=== PATIENT | female | born 1960 | race Caucasian/White ===

== ENCOUNTER 2018-09-07 07:23 | Day surgery (SDC) | payer OTHER ==
[2018-09-03 12:47] LABS: Absolute Lymphocytes (CBC) 1.1 K/uL (0.7-4.9); Basophils % 1.4 % (0-1.3); Eosinophils % 3.2 % (0-4.4); Hematocrit 37.5 % (36.0-45.0); Lymphocytes % 27.7 % (15.3-44.8); MPV 7.7 fL (7.6-11.3); Monocytes % 12.7 % (3.3-12.3); RBC Red Blood Cell Count 4.01 M/uL (3.86-4.86)
--- NOTE | 2018-09-03 12:55 | RAD REPORT ---
EXAM DESCRIPTION: RAD - Chest Pa And Lat (2 Views) - 09/03/2018 12:44 pm CLINICAL HISTORY: pre op Chest pain. COMPARISON: Chest Single View dated 02/25/2018; CHEST SINGLE VIEW dated 01/12/2013; CHEST PA AND LAT 2 VIEW dated 06/21/2011; ABDOMEN 1 VIEW KUB dated 06/15/2011No comparisonsNo comparisons FINDINGS: Hyperexpanded lungs are noted. No focal infiltrate seen. The heart is normal in size. No d isplaced fractures. IMPRESSION: No acute or concerning finding suspected.
[2018-09-03 13:11] LABS: Albumin 4.2 g/dL (3.4-5.0); Bilirubin Direct 0.1 mg/dL (0-0.2); Bilirubin Total 0.5 mg/dL (0.2-1.0); Potassium 3.9 mmol/L (3.5-5.1); Protein, Total 7.3 g/dL (6.4-8.2)
--- NOTE | 2018-09-04 07:35 | EKG ---
Test Date: 2018-09-03 Test Time: 12:33:13 Chief Radiation Therapist: ANDREW MEASUREMENT RESULTS: Intervals: Rate: 55 IN: 140 QRSD: 76 QT: 432 QTc: 413 Paola: P: 61 IN: 140 QRS: 73 T: 79 INTERPRETIVE STATEMENTS: Sinus bradycardia Cannot rule out Anterior infarct, age undetermined Abnormal ECG No previous ECG available for comparison Electronically Signed On 09-04-18 07:34:25 CDT by Les Vuong
[2018-09-07] MEDS ORDERED: Ringers Lactate 1,000 ML IV ONE ×2 (08:05→10:05)
[2018-09-07] MEDS ORDERED: GLYCOPYRROLATE 0.2 MG/ML SYR ONE ×2 (08:07→09:14)
[2018-09-07] MEDS ORDERED: MIDAZOLAM HCL 2 MG/2 ML INJ ONE (08:07)
[2018-09-07] MEDS ORDERED: PROPOFOL 200 MG/20 ML VIAL IV ONE (08:07)
[2018-09-07] MEDS ORDERED: LIDOCAINE 2% MPF 5 ML VIAL ONE (08:08)
[2018-09-07] MEDS ORDERED: ROCURONIUM 50 MG/5 ML VIAL IV ONE (08:09)
[2018-09-07] MEDS ORDERED: FENTANYL CITR 250 MCG/5 ML ONE (08:09)
[2018-09-07] MEDS ORDERED: ONDANSETRON 4 MG/2 ML VIAL ONE (08:10)
[2018-09-07] MEDS ORDERED: NEOSTIGMINE 1 MG/ML -10 ML VIAL ONE (08:11)
[2018-09-07] MEDS ORDERED: EPHEDRINE SULF 50 MG/ML VIAL ONE (08:56)
[2018-09-07] MEDS ORDERED: CEFOXITIN/SWI 1gm 1 GM/10 ML SYR IV ONE (09:00)
--- NOTE | 2018-09-07 09:32 | P.BOP ---
Preoperative diagnosis: RUQ abd pain, biliary dyskinesia, gallbladder polyps Postoperative diagnosis: same Primary procedure: Laparoscopic cholecystectomy Bar Pointer: MARA SHARMA (LAYOUT INSPECTOR) Estimated blood loss: <10cc Specimen: gb Findings: as above Anesthesia: General Complications: None Transferred to: Recovery Room Condition: Good
[2018-09-07] MEDS ORDERED: CODEINE 30MG/APAP 300MG TAB ONE (10:59)
--- NOTE | 2018-09-07 23:08 | OP ---
Date of Procedure: 09/07/2018 Surgeon: Boogie Jean MD Preoperative Diagnoses: Right upper quadrant abdominal pain, biliary dyskinesia, cholecystitis, gall bladder polyps. Postoperative Diagnoses: Right upper quadrant abdominal pain, biliary dyskinesia, cholecystitis, gal lbladder polyps. Procedure: Laparoscopic cholecystectomy. Estimated Blood Loss: Less than 10 cc. Specimen: Gallbladder. Findings: As above. Anesthesia: General plus local. Indications: This is a case of a 58-year-old patient with above diagnoses. Fully explained the bene fits, alternatives, and risks of laparoscopic, possible open cholecystectomy with benefits, alternati ves, and risks including, but not limited to infection, bleeding, damage to adjacent structures, anes thesia complication, bile leak, CO, even . She also understands this may not relieve any sympto ms. She might need more than one surgical intervention. She understood, signed a consent. Description Of Procedure: Patient was brought to the operating room, placed in supine position. Ane sthesia was done without complication. Abdominal area was prepped and draped in the usual sterile fa shion. Marcaine 0.5% was injected for local anesthetic, followed by sharp incision of the skin in th e infraumbilical region. Incision was carried down to fascia, which was opened under direct vision. Vicryl #1 placed on each side of the fascia. Salome trocar was carefully introduced. Pneumoperiton eum was obtained. I placed 3 more trocars, 5 mm each one of them, one in the epigastric area and two in the right upper quadrant using same technique, which consisted of local anesthetic, sharp incisio n of the skin, and introduction of the trocars under direct vision. This allowed me to put a grasper in the fundus of the gallbladder, another grasper in the infundibulum, retracting the gallbladder in the inferolateral fashion, exposing the triangle of Calot and obtaining critical view of safety. Cy stic duct and cystic artery were clearly isolated and freed circumferentially and a connection betwee n those and the gallbladder was clearly identified. I proceeded to ligate those by using at least 3 clips proximal, 1 clip distal, ligation in middle. For the cystic artery, we placed 2 clips proximal , 1 clip distal, ligation in middle. The gallbladder was removed from the liver using Bovie cauteriz er and removed from abdominal cavity using an EndoCatch through the umbilical incision. The area was inspected once again. No bile leak. No bleeding. At that moment, I proceeded to remove the trocar s under direct vision, deflated the pneumoperitoneum, closed the fascia with #1 Vicryl, irrigated sub cutaneous tissue, closed that with 3-0 chromic and skin in a subcuticular fashion with 3-0 chromic. Sponge count and instrument count were correct. Patient tolerated the procedure well. Patient was s ent to recovery in stable condition. Diagnoses: Right upper quadrant abdominal pain, biliary dyskinesia, gallbladder polyps, cholecystiti s. Procedure: Laparoscopic cholecystectomy. Disposition: Home. Activity: As tolerated. No heavy lifting. Followup: Follow up in my office in 1 week. Call for appointment [phone]. Keep area dry for 48 ho urs, then may shower. Keep Steri-Strips intact. Medications: Include Tylenol No. 3 q.4 hours p.r.n. pain, Zofran 4 q.6 p.r.n. nausea. VEE/IRMA Voice ID: [id number] Report ID: [id number]
== END 2018-09-07 12:12 | disposition home or self-care (01) ==
LOC: OR 07:23
PROVIDERS: ATTEND Surgery
PROC: 0FT44ZZ Resection of Gallbladder, Percutaneous Endoscopic Approach (ICD-10-PCS; principal; 2018-09-07 08:30)
DX: K81.1 Chronic cholecystitis (principal); K82.8 Other specified diseases of gallbladder; I10 Essential (primary) hypertension; F32.9 Major depressive disorder, single episode, unspecified; F41.9 Anxiety disorder, unspecified; Z88.0 Allergy status to penicillin; Z88.3 Allergy status to other anti-infective agents; Z82.49 Family history of ischemic heart disease and other diseases of the circulatory system
CPT/HCPCS: 36415; 71046; 80048; 80076; 82150; 83690; 85025; 88304; 93005; J2250; J2405; J2704; J2710; J3010

== ENCOUNTER 2024-01-21 23:46 | Emergency (ER) | payer BC, OTHER ==
--- OUTSIDE RECORDS SUMMARY | 2024-01-21 23:50 | XMS REPORT | Continuity of Care Document ---
Author Name Unknown Address [address] [facility] [address] [place] [address] [facility] Address [address] 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 Name Role Phone Nash Mendoza Primary Care Physician [phone] PRANEETH CHIANG Attending Clinician Unavailable ROOPA ERNST Attending Clinician Unavailable BAILEY BARLOW Attending Clinician Unavailab KAMRON Herrera Attending Clinician Unavail able DIEGO HERNDON Attending Clinician Unavailab le LAB90 Attending Clinician Unavailable DWAYNE MOORE Attending Clinician Unava ilDANYA Singleton Attending Clinician Unavailable SAMUEL FONTANA Attending Clinician Unavaila ANJELICA Gaspar Attending Clinician Unav ailable ARIANNE LUCIA Attending Clinician Unavailable LIZZ HOLLIDAY Attending Clinician Unavailable SHILOH HERNÁNDEZ Attending Clinician Unavailable STONE RUEDA Attending Clinician Unavailab DORA Vargas Attending Clinician Unavailable LAB47 Attending Clinician Unavailable VAISHALI GARCIA Attending Clinician Unav ailable JOHANN SHAH Attending Clinician Unavailable ROWENA SOTO Attending Clinician Unavailable [facility] Attending Clinician UnavailGHASSAN Willoughby Attending Clinician Unavailable REID MAY Attending Clinician Unavailabl TATA Villatoro Attending Clinician Unavailable MD ELISA Attending Clinician Unavailab lucien MATOS7 Attending Clinician Unavailable BURT GRAHAM Attending Clinician Unavailab SHARLENE Lawson Attending Clinician Unavailable EDUCATION, TOTAL JOINT Attending Clinician Unava ilable LAB59 Attending Clinician Unavailable BROOKLYNN GONZALEZ Attending Clinician Unavailable [facility] Attending Clinician Unavail able DOMINGO PEREZ Attending Clinician Un available Samanta Dietz Attending Clinician Un available AISHA DOUGHERTY Attending Clinician Unavailable BOBBY FLORES Attending Clinician Unavailable SMOOTH ANGEL Attending Clinician Unavailable Neftali GUALDE, Dwayne Avendano Attending Clinician [phone] Doctor Unassigned, [place] Attending Clinician U navailable BEVERLY BOBO Attending Clinician UnavailBeverly Mcneal MD Attending Clinician [phone] Niranjan Gutiérrez DO Attending Clinician [phone] Lab, Adc Fam Pob I Attending Clinician Unavailab Esther Montenegro Attending Clinician [phone] ESTHER CORDERO Attending Clinician Unavailable LUISITO ROMANO Attending Clinician Unavailable Luisito Romano DO Attending Clinician [phone] Samanta Dietz Admitting Clinician Un available LUISITO ROMANO Admitting Clinician Unavailable Jhonny Cisneros Admitting Clinician Unavailtomás ernst Payers Payer Name Policy Type Policy Number Effective Date Expirati on Date Source TRS [employer] 9 [id number] 2022 00:00:00 [employer]ET[employer] 2 [id number] 2020 00:00:00 Problems Condition Name Condition Details Condition Category Status Onset Date Resolution Date Last Treatment Date Treating Clinician Comments Source Right hip pain - Not Controlled Right hip pain - Not Controlled Disease Active 09-21 00:00: 00 Luba Davisold - Externa l Primary osteoarthr itis of both hands - Not Controlled Primary osteoarthr itis of both hands - Not Controlled Disease Active 09-21 00:00: 00 Luba Sewinterold - Externa l Right hip pain - Not Controlled Right hip pain - Not Controlled Disease Active 09-21 00:00: 00 Luba Sewinterold - Externa l Essential hypertensi on Essential hypertensi on Disease Active 08-11 00:00: 00 Luba Davisold - Externa l Anxiety Anxiety Disease Active 08-11 00:00: 00 Luba Davisold - Externa l Mood disorder Mood disorder Disease Active 08-11 00:00: 00 Luba Albright - Externa l History of COVID-19 History of COVID-19 Disease Active 08-11 00:00: 00 Luba Davisold - Externa l Menopausal osteoporos is Menopausal osteoporos is Disease Active 08-04 00:00: 00 Luba Albright - Externa l Stage 3 chronic kidney disease Stage 3 chronic kidney disease Disease Active 08-04 00:00: 00 Luba Davisold - Externa l No known active problems No known active problems Disease [facility] Allergies, Adverse Reactions, Alerts Allergy Name Allergy Type Status Severity Reaction(s) Onset Date Inactive Date Treating Clinician Comments Source Hydrocod one-Acet aminophe n Drug Intolera nce Active Hallucinatio ns 06-19 00:00: 00 Luba Albright - Externa l Avocado Propensi ty to adverse reaction s Active Swelling 08-11 00:00: 00 Luba Albright Banana Propensi ty to adverse reaction s Active Swelling 08-11 00:00: 00 Luba Albright Black [place] Pollen Propensi ty to adverse reaction s Active Swelling 08-11 00:00: 00 Luba Seybold - Externa l Floxin Otic Propensi ty to adverse reaction s Active Rash 0 18 00:00: 00 Luba Davisold - Externa l Avocado Propensi ty to adverse reaction s Active Swelling 0 18 00:00: 00 Luba Davisold - Externa l Banana Propensi ty to adverse reaction s Active Swelling 0 18 00:00: 00 Luba Davisold - Externa l Ofloxaci n Propensi ty to adverse reaction s Active Rash 0 217 00:00: 00 Luba Davisold Ofloxaci n Propensi ty to adverse reaction s Active Rash 0 217 00:00: 00 [facility] Penicill ins Propensi ty to adverse reaction s Active Nausea and/or Vomiting 0 217 00:00: 00 [facility] Penicill ins Propensi ty to adverse reaction s Active Nausea and/or Vomiting 0 217 00:00: 00 [facility] Ofloxaci n Propensi ty to adverse reaction s Active Rash 0 7-11 00:00: 00 Other reaction( s): Itching/H iraj/Rash Luba Albright - Externa l Mixed Grasses Propensi ty to adverse reaction s Active 0 5-01 00:00: 00 Luba Albright - Externa l Floxin Otic Propensi ty to adverse reaction s Active Rash 0 6-13 00:00: 00 Other Reaction( s): Not available Luba Albright - Externa l Penicill ins Propensi ty to adverse reaction s Active Nausea and Vomiting 0 7-11 00:00: 00 Luba Albright Penicill in G Benzathi ne Propensi ty to adverse reaction s Active 0 3-14 00:00: 00 Other Reaction( s): Not available Luba Davisold - Externa l FLOXIN DA Active U 21 00:00: 00 [facility] No Known Contrast Allergie s DA Active U 0 08-14 00:00: 00 [facility] No Known Food Allergie s DA Active U 08-14 00:00: 00 [facility] No Known Other Allergie s DA Active U 08-14 00:00: 00 [facility] PENICILL IN DA Active U 08-14 00:00: 00 [facility] floxacil joanna DA Active U 08-02 00:00: 00 [facility] penicill in G DA Active U 08-02 00:00: 00 [facility] Flucloxa cillin Propensi ty to adverse reaction s Active 08-02 00:00: 00 Luba Campbell Externa l Penicill ins Propensi ty to adverse reaction s Active Nausea and Vomiting 08-02 00:00: 00 Other reaction( s): Nausea/Vo miting Luba Albright - Externa l floxacil joanna DA Active U 08-02 00:00: 00 [facility] penicill in G DA Active U 08-02 00:00: 00 [facility] Social History Social Habit Start Date Stop Date Quantity Comments Source Gender identity 2020-08-08 11:56:38 Identifies as female gender (finding) Luba Albright - External Sexual orientation U [facility] History SDOH Alcohol Frequency Luba hand - External History SDOH Alcohol Std Drinks Luba calderon - External History SDOH Alcohol Binge Luba Albright - External ASSERTION Not Luba Albright - External Alcoholic beverage intake 2024-01-19 00:00:00 2024-01-19 00:00:00 Ex-drinker (finding) Luba Albright - External Tobacco use and exposure 2023-09-22 00:00:00 2023-09-22 00:00:00 Smokeless tobacco non-user Luba Albright - External Alcohol intake 2023-03-24 00:00:00 2023-03-24 00:00:00 Current drinker of alcohol (finding) Luba Albright - External Alcohol Comment 2022-08-21 00:00:00 2022-08-21 00:00:00 rarely Luba Albright - External Exposure to SARS-CoV-2 (event) 2021-03-26 00:00:00 2021-04-25 16:13:00 Not sure [facility] History of Social function 2020-09-28 00:00:00 2020-09-28 00:00:00 [facility] Sex 2020-05-23 17:12:38 2020-05-23 17:12:38 Female (finding) Luba Albright - External Sex Assigned At 1960 00:00:00 1960 00:00:00 [facility] Smoking Status Start Date Stop Date Source Never smoked tobacco Luba Albright - External Medications Ordered Medication Name Filled Medication Name Start Date Stop Date Current Medication? Ordering Clinician Indication Dosage Frequency Signature (SIG) Comments Components Source methylPREDN ISolone 4 MG oral Tablet Therapy Pack 2023-02 00:00: 00 Yes [id number] 1{lucille} Take 1 lucille by mouth See Admin Instructio ns Use as directed. Luba forbes Azelastine HCl 0.1 % nasal Solution 2023-02 00:00: 00 Yes [id number] 1{spray } Q.5D Use 1 spray in each nostril 2 times daily. Luba forbes Cefdinir 300 MG oral Capsule 2023-02 00:00: 00 01-26 05:59 :00 Yes [id number] 300mg Q.5D Take 1 capsule (300 mg total) by mouth 2 times daily for 7 days. Luba forbes Magnesium 200 MG oral Chewable Tablet 09-21 08:12: 40 Yes Take by mouth Luba forbes Meloxicam 15 MG oral Tablet 09-21 08:12: 32 09-21 00:00 :00 No TAKE 1 TABLET BY MOUTH EVERY DAY WITH MEALS STOP IF UPSET STOMACH Luba forbes Tizanidine HCl 4 MG oral Tablet 09-21 08:12: 32 09-21 00:00 :00 No 4mg Q.25D Take 1 tablet (4 mg total) by mouth every 6 hours as needed. Luba forbes Metoprolol Succinate 25 MG oral TABLET SR 24 HR 09-21 00:00: 00 Yes [id number] take 1/2 tablet by mouth every day. Luba forbes Magnesium 200 MG oral Chewable Tablet 09-17 09:34: 21 Yes Take by mouth Luba forbes Metoprolol Succinate 25 MG oral TABLET SR 24 HR 08-28 00:00: 00 09-21 00:00 :00 No [id number] take 1/2 tablet by mouth every day. Luba forbes Methylpredn isolone Acetate (Depo-Medro l) 40 mg/ml - Physician Administere d (J1030) 07-22 16:00: 00 07-22 16:41 :00 No [id number] 20mg 20 mg, Physician Administer ed, ONCE, 1 dose, On Fri07/23/23 at 1100 Luba forbes Magnesium 200 MG oral Chewable Tablet 07-22 10:07: 23 Yes Take by mouth Luba forbes Meloxicam 15 MG oral Tablet 07-22 10:07: 23 Yes TAKE 1 TABLET BY MOUTH EVERY DAY WITH MEALS STOP IF UPSET STOMACH Luba forbes Tizanidine HCl 4 MG oral Tablet 07-22 10:07: 23 Yes 4mg Q.25D Take 1 tablet (4 mg total) by mouth every 6 hours as needed. Luba forbes Alendronate Sodium 70 MG oral Tablet 07-09 00:00: 00 Yes 70mg Take 1 tablet (70 mg total) by mouth every 7 days. Luba forbes Meloxicam 15 MG oral Tablet 03-24 07:30: 31 Yes TAKE 1 TABLET BY MOUTH EVERY DAY WITH MEALS STOP IF UPSET STOMACH Luba forbes Tizanidine HCl 4 MG oral Tablet 03-24 07:30: 31 Yes 4mg Q.25D Take 1 tablet (4 mg total) by mouth every 6 hours as needed. Luba forbes Lamotrigine 25 MG oral Tablet 03-13 00:00: 00 Yes 25mg QD Take 1 tablet (25 mg total) by mouth daily. Luba forbes Melatonin 5 MG oral Capsule 2022-02 15:02: 44 02-10 00:00 :00 No Luba forbes FLUTICASONE PROPIONATE, NASAL, (Flonase) 50 MCG/ACT nasal Suspension 2022-02 00:00: 00 07-22 00:00 :00 No [id number] 50ug QD Use 1 spray (50 mcg total) in each nostril daily as needed for rhinitis. Luba forbes Cetirizine (ZyrTEC Allergy) 10 MG oral Tablet 2022-02 00:00: 00 07-22 00:00 :00 No [id number] 10mg Take 1 tablet (10 mg total) by mouth daily. Luba forbes Melatonin 5 MG oral Capsule 2022-02 14:14: 42 Yes Luba forbes Magnesium 200 MG oral Chewable Tablet 2022-02 14:14: 42 Yes Take by mouth Luba forbes Melatonin 5 MG oral Capsule 10-02 10:09: 54 Yes Luba forbes Magnesium 200 MG oral Chewable Tablet 10-02 10:09: 54 Yes Take by mouth Luba forbes Melatonin 5 MG oral Capsule 09-16 13:06: 25 Yes Luba forbes Magnesium 200 MG oral Chewable Tablet 09-16 13:06: 25 Yes Take by mouth Luba forbes Dermatologi michela Products, Misc. (EpiCeram) apply externally Emulsion 09-16 00:00: 00 Yes [id number] Apply to affected areas on face and trunk BID prn Luba forbes Metoprolol Succinate 25 MG oral TABLET SR 24 HR 09-09 00:00: 00 Yes [id number] TAKE 1/2 TABLET BY MOUTH ONCE DAILY Luba forbes Melatonin 5 MG oral Capsule 08-21 09:00: 32 Yes Luba forbes Magnesium 200 MG oral Chewable Tablet 08-21 09:00: 32 Yes Take by mouth Luba forbes HYDROcodone -Acetaminop hen (Advance) 10-325 MG oral Tablet 08-21 00:00: 00 02-10 00:00 :00 No [id number] 1{tbl} Q.25D Take 1 tablet by mouth every 6 hours as needed for pain Driving Precaution s / No alcohol / No operating machinery Luba forbes Aspirin 325 MG oral Tablet 08-21 00:00: 00 10-02 00:00 :00 No [id number] 325mg Take 1 tablet (325 mg total) by mouth daily Luba forbes Mupirocin (BACTROBAN) 2 % apply externally Ointment 07-30 00:00: 00 Yes [id number] Apply ointment to each of the nares, 2 times a day for 5 days before surgery Luba forbes Magnesium 200 MG oral Chewable Tablet 07-25 10:23: 38 Yes Take by mouth Luba forbes Melatonin 5 MG oral Capsule 07-25 10:22: 09 Yes Luba forbes Melatonin 3 MG oral Capsule 06-05 09:06: 53 06-05 00:00 :00 No Luba forbes Gabapentin 100 MG oral Capsule 06-05 00:00: 00 02-10 00:00 :00 No [id number] 9102 Take 1-2 cap at night Luba forbes ESTRADIOL VAGINAL 0.1 MG/GM vaginal Cream 04-22 00:00: 00 Yes USING FINGER, APPLY 1 GM CREAM TO LABIA, PERINEUM AND LOWER VAGINAL AVILES 2 NIGHTS WEEKLY Luba forbes Melatonin 3 MG oral Capsule 04-03 08:41: 09 Yes Luba forbes Methylpredn isolone Acetate (Depo-Medro l) [40 mg/mL] 20mg TOTAL - Physician Administere d (J1030) - 22:30: 00 04-02 22:39 :00 No [id number] 9104 20mg Luba Albright - Externa l Melatonin 3 MG oral Capsule 04-02 15:32: 28 Yes Luba Rahmanwinterobdulia - Externa l Tizanidine HCl 4 MG oral Tablet 04-02 00:00: 00 06-19 00:00 :00 No [id number] 4mg Q.25D Take 1 tablet (4 mg total) by mouth every 6 hours as needed. Luba Jose Ramon - Externa l cloNIDine 0.1 MG/24HR transdermal PATCH WEEKLY - 00:00: 00 Yes Luba Rahmanwinterobdulia - Externa l Clonidine HCl (CATAPRES) 0.1 MG oral Tablet - 00:00: 00 Yes TAKE 1 TABLET BY MOUTH EVERY EVENING NEEDED FOR MANAGEMENT OF ANXIETY AND RACING MIND Luba Rahmanwinterobdulia - Externa l Melatonin 3 MG oral Capsule 2021-02 11:02: 16 Yes Luba Rahmanwinterobdulia - Externa l Meloxicam 15 MG oral Tablet 2021-02 00:00: 00 07-25 00:00 :00 No [id number] 9104 TAKE 1 TABLET BY MOUTH EVERY DAY WITH MEALS STOP IF UPSET STOMACH Luba Albright - Externa l Melatonin 3 MG oral Capsule 2021-02 15:30: 19 Yes Lbua Rahmanwinterobdulia - Externa l Meloxicam 15 MG oral Tablet 2021-02 0-31 00:00: 00 Yes [id number] 9104 TAKE 1 TABLET BY MOUTH EVERY DAY WITH MEALS STOP IF UPSET STOMACH Luba Albright - Externa l Melatonin 3 MG oral Capsule 2021-02 0-05 08:22: 07 Yes Luba Rahmankvng - Externa l Meloxicam 15 MG oral Tablet 2021-02 0-05 00:00: 00 Yes [id number] 9104 15mg Take 1 tablet (15 mg total) by mouth daily Take with Meals, STOP IF UPSET STOMACH Luba Rahmanwinterobdulia - Externa l Metoprolol Succinate 25 MG oral TABLET SR 24 HR 6-10 00:00: 00 Yes [id number] TAKE 1/2 TABLET BY MOUTH ONCE DAILY Luba Albright - Externa l triamcinolo ne acetonide (KENALOG) injection 40 mg 04-26 00:00: 00 04-25 22:47 :00 No [id number] 9100 40mg [facility] triamcinolo ne acetonide (KENALOG) injection 40 mg 04-25 23:45: 00 04-25 22:46 :14 No [id number] 9100 40mg [facility] Doxycycline Hyclate 100 MG oral Tablet 03-26 00:00: 00 Yes [id number] 100mg Take 1 tablet (100 mg total) by mouth 2 times daily Luba Albright methylPREDN ISolone 4 MG oral Tablet Therapy Pack 03-20 00:00: 00 03-26 00:00 :00 No [id number] 1{lucille} Take 1 lucille by mouth See Admin Instructio ns Use as directed Luba Albright clonazePAM 0.5 mg tablet 1-04 00:00: 00 Yes [facility] alendronate 70 mg tablet 2020-02 2-15 00:00: 00 Yes [facility] metoprolol succinate XL 25 mg 24 hr tablet 2020-02 2-13 00:00: 00 Yes [facility] SERTraline (ZOLOFT) 50 mg tablet 09-28 09:58: 32 Yes 50mg Take 50 mg by mouth daily. [facility] lamoTRIgine (LAMICTAL) 200 mg tablet 09-28 09:58: 32 Yes 200mg Take 200 mg by mouth 2 (two) times daily. [facility] metoprolol abbott-hydrochl orothiaz 50-12.5 mg Tb24 8 09:58: 32 Yes Take by mouth. [facility] Melatonin 3 MG oral Capsule 09-21 14:28: 51 Yes Luba Albright ESTRADIOL VAGINAL 0.1 MG/GM vaginal Cream 6- 00:00: 00 03-26 00:00 :00 No Luba Albright Fluticasone Furoate 27.5 MCG/SPRAY nasal Suspension 07-25 00:00: 00 06-05 00:00 :00 No Luba forbes Lamotrigine 200 MG oral Tablet 06-09 00:00: 00 Yes 1{tbl} Take 1 tablet by mouth daily Luba forbes Lamotrigine 200 MG oral Tablet 06-09 00:00: 00 07-22 00:00 :00 No 200mg Take 1 tablet (200 mg total) by mouth daily. Luba forbes Sertraline HCl 100 MG oral Tablet 06-08 00:00: 00 Yes Luba forbes Clonazepam 0.5 MG oral Tablet 06-04 00:00: 00 Yes .5mg QD Take 1 tablet (0.5 mg total) by mouth daily as needed. Luba forbes Alendronate Sodium 70 MG oral Tablet 04-12 00:00: 00 07-09 00:00 :00 No 70mg Take 1 tablet (70 mg total) by mouth once a week. Luba forbes diclofenac 75 mg EC tablet 04-12 00:00: 00 Yes [id number] 9102 75mg Take 1 tablet by mouth 2 (two) times daily with meals. [facility] Immunizations Ordered Immunization Name Filled Immunization Name Date Status Comments Source Shingles IM (Shingrix) 2020-10-09 00:00:00 Completed Luba Albright - External Shingles IM (Shingrix) 2020-10-09 00:00:00 Completed Luba Albright - External Shingles IM (Shingrix) 2020-10-09 00:00:00 Completed Luba Albright - External Shingles IM (Shingrix) 2020-10-09 00:00:00 Completed Luba Albright - External Shingles IM (Shingrix) 2020-10-09 00:00:00 Completed Luba Albright - External Shingles IM (Shingrix) 2020-10-09 00:00:00 Completed Luba Seybold - External Shingles IM (Shingrix) 2020-10-09 00:00:00 Completed Luba Seybold - External Shingles IM (Shingrix) 2020-10-09 00:00:00 Completed Luba Seybold - External Shingles IM (Shingrix) 2020-10-09 00:00:00 Completed Luba Seybold - External Shingles IM (Shingrix) 2020-10-09 00:00:00 Completed Luba Seybold - External Shingles IM (Shingrix) 2020-10-09 00:00:00 Completed Luba Seybold - External Shingles IM (Shingrix) 2020-10-09 00:00:00 Completed Luba Seybold - External Shingles IM (Shingrix) 2020-10-09 00:00:00 Completed Luba Seybold - External Shingles IM (Shingrix) 2020-10-09 00:00:00 Completed Luba Seybold Shingles IM (Shingrix) 2020-10-09 00:00:00 Completed Luba Seybold - External Shingles IM (Shingrix) 2020-08-11 00:00:00 Completed Luba Seybold - External Shingles IM (Shingrix) 2020-08-11 00:00:00 Completed Luba Seybold - External Shingles IM (Shingrix) 2020-08-11 00:00:00 Completed Luba Seybold - External Shingles IM (Shingrix) 2020-08-11 00:00:00 Completed Luba Seybold - External Shingles IM (Shingrix) 2020-08-11 00:00:00 Completed Luba Seybold - External Shingles IM (Shingrix) 2020-08-11 00:00:00 Completed Luba Seybold - External Shingles IM (Shingrix) 2020-08-11 00:00:00 Completed Luba Seybold - External Shingles IM (Shingrix) 2020-08-11 00:00:00 Completed Luba Seybold - External Shingles IM (Shingrix) 2020-08-11 00:00:00 Completed Luba Seybold - External Shingles IM (Shingrix) 2020-08-11 00:00:00 Completed Luba Seybold - External Shingles IM (Shingrix) 2020-08-11 00:00:00 Completed Luba Seybold - External Shingles IM (Shingrix) 2020-08-11 00:00:00 Completed Luba Seybold - External Shingles IM (Shingrix) 2020-08-11 00:00:00 Completed Luba Seybold - External Shingles IM (Shingrix) 2020-08-11 00:00:00 Completed Luba Seybold Shingles IM (Shingrix) 2020-08-11 00:00:00 Completed Luba Seybold - External Shingles SQ (Zostavax) 2015-11-28 00:00:00 Completed Luba Seybold - External Shingles SQ (Zostavax) 2015-11-28 00:00:00 Completed Luba Seybold - External Shingles SQ (Zostavax) 2015-11-28 00:00:00 Completed Luba Seybold - External Shingles SQ (Zostavax) 2015-11-28 00:00:00 Completed Luba Seybold - External Shingles SQ (Zostavax) 2015-11-28 00:00:00 Completed Luba Seybold - External Shingles SQ (Zostavax) 2015-11-28 00:00:00 Completed Luba Seybold - External Shingles SQ (Zostavax) 2015-11-28 00:00:00 Completed Luba Seybold - External Shingles SQ (Zostavax) 2015-11-28 00:00:00 Completed Luba Seybold - External Shingles SQ (Zostavax) 2015-11-28 00:00:00 Completed Luba Seybold - External Shingles SQ (Zostavax) 2015-11-28 00:00:00 Completed Luba Seybold - External Shingles SQ (Zostavax) 2015-11-28 00:00:00 Completed Luba Seybold - External Shingles SQ (Zostavax) 2015-11-28 00:00:00 Completed Luba Seybold - External Shingles SQ (Zostavax) 2015-11-28 00:00:00 Completed Luba Seybold - External Shingles SQ (Zostavax) 2015-11-28 00:00:00 Completed Luba Seybold Shingles SQ (Zostavax) 2015-11-28 00:00:00 Completed Luba Seybold - External Tdap- (Boostrix, Adacel) 2015-10-03 00:00:00 Completed Luba Seybold - External Tdap- (Boostrix, Adacel) 2015-10-03 00:00:00 Completed Luba Seybold - External Tdap- (Boostrix, Adacel) 2015-10-03 00:00:00 Completed Luba Seybold - External Tdap- (Boostrix, Adacel) 2015-10-03 00:00:00 Completed Luba Seybold - External Tdap- (Boostrix, Adacel) 2015-10-03 00:00:00 Completed Luba Seybold - External Tdap- (Boostrix, Adacel) 2015-10-03 00:00:00 Completed Luba Seybold - External Tdap- (Boostrix, Adacel) 2015-10-03 00:00:00 Completed Luba Seybold - External Tdap- (Boostrix, Adacel) 2015-10-03 00:00:00 Completed Luba Seybold - External Tdap- (Boostrix, Adacel) 2015-10-03 00:00:00 Completed Luba Seybold - External Tdap- (Boostrix, Adacel) 2015-10-03 00:00:00 Completed Luba Seybold - External Tdap- (Boostrix, Adacel) 2015-10-03 00:00:00 Completed Luba Seybold - External Tdap- (Boostrix, Adacel) 2015-10-03 00:00:00 Completed Luba Seybold - External Tdap- (Boostrix, Adacel) 2015-10-03 00:00:00 Completed Luba Seybold - External Tdap- (Boostrix, Adacel) 2015-10-03 00:00:00 Completed Luba Seybold Tdap- (Boostrix, Adacel) 2015-10-03 00:00:00 Completed Luba Seybold - External Tdap- (Boostrix, Adacel) Unknown Completed Luba Seybold - External Shingles SQ (Zostavax) Unknown Completed Luba Seybold - External Shingles IM (Shingrix) Unknown Completed Luba Seybold - External Tdap- (Boostrix, Adacel) Unknown Completed Luba Seybold - External Shingles SQ (Zostavax) Unknown Completed Luba Seybold - External Shingles IM (Shingrix) Unknown Completed Luba Seybold - External Tdap- (Boostrix, Adacel) Unknown Completed Luba Seybold - External Shingles SQ (Zostavax) Unknown Completed Luba Seybold - External Shingles IM (Shingrix) Unknown Completed Luba Seybold - External Tdap- (Boostrix, Adacel) Unknown Completed Luba Seybold - External Shingles SQ (Zostavax) Unknown Completed Luba Seybold - External Shingles IM (Shingrix) Unknown Completed Luba Seybold - External Tdap- (Boostrix, Adacel) Unknown Completed Luba Seybold - External Shingles SQ (Zostavax) Unknown Completed Luba Seybold - External Shingles IM (Shingrix) Unknown Completed Luba Seybold - External Tdap- (Boostrix, Adacel) Unknown Completed Luba Seybold - External Shingles SQ (Zostavax) Unknown Completed Luba Seybold - External Shingles IM (Shingrix) Unknown Completed Luba Seybold - External Tdap- (Boostrix, Adacel) Unknown Completed Luba Seybold - External Shingles SQ (Zostavax) Unknown Completed Luba Seybold - External Shingles IM (Shingrix) Unknown Completed Luba Seybold - External Tdap- (Boostrix, Adacel) Unknown Completed Luba Seybold - External Shingles SQ (Zostavax) Unknown Completed Luba Seybold - External Shingles IM (Shingrix) Unknown Completed Luba Seybold - External Tdap- (Boostrix, Adacel) Unknown Completed Luba Seybold - External Shingles SQ (Zostavax) Unknown Completed Luba Seybold - External Shingles IM (Shingrix) Unknown Completed Luba Seybold - External Tdap- (Boostrix, Adacel) Unknown Completed Luba Seybold - External Shingles SQ (Zostavax) Unknown Completed Luba Seybold - External Shingles IM (Shingrix) Unknown Completed Luba Seybold - External Vital Signs Vital Name Observation Time Observation Value Comments S ource Systolic blood pressure 2023-09-22 13:07:00 110 mm[Hg] Luba Seybo ld - External Diastolic blood pressure 2023-09-22 13:07:00 60 mm[Hg] Luba Seybo ld - External Heart rate 2023-09-22 13:07:00 60 /min Kelse y Seybold - External Body temperature 2023-09-22 13:07:00 35.94 Bree Luba Seybold - External Respiratory rate 2023-09-22 13:07:00 14 /min Luba Seybold - External Body height 2023-09-22 13:07:00 170.8 cm Alison ey Seybold - External Body weight 2023-09-22 13:07:00 53.978 kg Alison ey Seybold - External BMI 2023-09-22 13:07:00 18.50 kg/m2 Alison ey Seybold - External Systolic blood pressure 2023-09-18 14:31:00 138 mm[Hg] Luba Seybo ld - External Diastolic blood pressure 2023-09-18 14:31:00 71 mm[Hg] Luba Seybo ld - External Heart rate 2023-09-18 14:31:00 61 /min Kelse y Seybold - External Body temperature 2023-09-18 14:31:00 36.39 Bree Luba Seybold - External Respiratory rate 2023-09-18 14:31:00 12 /min Luba Seybold - External Body height 2023-09-18 14:31:00 171.5 cm Alison ey Seybold - External Body weight 2023-09-18 14:31:00 53.978 kg Alison ey Seybold - External BMI 2023-09-18 14:31:00 18.36 kg/m2 Alison ey Seybold - External Systolic blood pressure 2023-07-23 15:06:00 114 mm[Hg] Luba Seybo ld - External Diastolic blood pressure 2023-07-23 15:06:00 70 mm[Hg] Luba Seybo ld - External Heart rate 2023-07-23 15:06:00 62 /min Kelse y Seybold - External Respiratory rate 2023-07-23 15:06:00 16 /min Luba Seybold - External Body height 2023-07-23 15:06:00 170.8 cm Alison ey Seybold - External Body weight 2023-07-23 15:06:00 54.432 kg Alison ey Seybold - External BMI 2023-07-23 15:06:00 18.66 kg/m2 Alison ey Seybold - External Body height 2022-10-02 15:09:00 170.2 cm Alison ey Seybold - External Systolic blood pressure 2022-07-25 15:45:00 132 mm[Hg] Luba Seybo ld - External Diastolic blood pressure 2022-07-25 15:45:00 78 mm[Hg] Luba Seybo ld - External Heart rate 2022-07-25 15:19:00 62 /min Kelse y Seybold - External Body temperature 2022-07-25 15:19:00 36.56 Bree Luba Seybold - External Respiratory rate 2022-07-25 15:19:00 16 /min Luba Seybold - External Body height 2022-07-25 15:19:00 170.8 cm Alison ey Seybold - External Body weight 2022-07-25 15:19:00 53.615 kg Alison ey Seybold - External BMI 2022-07-25 15:19:00 18.38 kg/m2 Alison ey Seybold - External Oxygen saturation in Arterial blood by Pulse oximetry 2022-07-25 15:19:00 100 /min Luba Seybo ld - External Systolic blood pressure 2022-06-19 19:26:00 110 mm[Hg] Luba Seybo ld - External Diastolic blood pressure 2022-06-19 19:26:00 70 mm[Hg] Luba Seybo ld - External Heart rate 2022-06-19 19:26:00 76 /min Kelse y Seybold - External Respiratory rate 2022-06-19 19:26:00 16 /min Luba Seybold - External Body height 2022-06-19 19:26:00 170.8 cm Alison ey Seybold - External Body weight 2022-06-19 19:26:00 54.885 kg Alison ey Seybold - External BMI 2022-06-19 19:26:00 18.81 kg/m2 Alison ey Seybold - External Systolic blood pressure 2022-06-05 13:35:00 104 mm[Hg] Luba Seybo ld - External Diastolic blood pressure 2022-06-05 13:35:00 70 mm[Hg] Luba Seybo ld - External Heart rate 2022-06-05 13:35:00 64 /min Kelse y Seybold - External Body temperature 2022-06-05 13:35:00 36.61 Bree Luba Seybold - External Respiratory rate 2022-06-05 13:35:00 16 /min Luba Seybold - External Body height 2022-06-05 13:35:00 170.8 cm Alison ey Seybold - External Body weight 2022-06-05 13:35:00 53.524 kg Alison ey Seybold - External BMI 2022-06-05 13:35:00 18.34 kg/m2 Alison ey Seybold - External Systolic blood pressure 2022-04-03 14:38:00 113 mm[Hg] Luba Seybo ld - External Diastolic blood pressure 2022-04-03 14:38:00 70 mm[Hg] Luba Seybo ld - External Heart rate 2022-04-03 14:38:00 70 /min Kelse y Seybold - External Body height 2022-04-03 14:38:00 170.8 cm Alison ey Seybold - External Body weight 2022-04-03 14:38:00 52.617 kg Alison ey Seybold - External BMI 2022-04-03 14:38:00 18.03 kg/m2 Alison ey Seybold - External Body height 2022-04-02 21:31:00 170.2 cm Alison ey Seybold - External Body weight 2022-04-02 21:31:00 52.164 kg Alison ey Seybold - External BMI 2022-04-02 21:31:00 18.01 kg/m2 Alison ey Seybold - External Body weight 2022-02-20 17:02:00 52.345 kg Alison ey Seybold - External BMI 2022-02-20 17:02:00 18.07 kg/m2 Alison ey Seybold - External Body weight 2021-12-26 20:29:00 53.524 kg Alison ey Seybold - External BMI 2021-12-26 20:29:00 18.48 kg/m2 Alison ey Seybold - External Body height 2021-11-28 13:21:00 170.2 cm Alison ey Seybold - External Body weight 2021-11-28 13:21:00 53.524 kg Alison ey Seybold - External BMI 2021-11-28 13:21:00 18.48 kg/m2 Alison ey Seybold - External Systolic blood pressure 2021-04-25 22:21:00 132 mm[Hg] Toney o [facility] Diastolic blood pressure 2021-04-25 22:21:00 84 mm[Hg] [facility] Heart rate 2021-04-25 22:21:00 66 /min [facility] Body height 2021-04-25 22:21:00 170.2 cm [facility] Body weight 2021-04-25 22:21:00 53.071 kg [facility] BMI 2021-04-25 22:21:00 18.32 kg/m2 [facility] Oxygen saturation in Arterial blood by Pulse oximetry 2021-04-25 22:21:00 100 /min [facility] Procedures Procedure Date / Time Performed Performing Clinicia n Source HIP RIGHT 2021-11-28 13:42:36 Kyra Perezsey Seybold - External EXTERNAL PROVIDER RECORDS 2021-06-05 05:01:00 Doctor Unassigned, [facility] Encounters Start Date/Time End Date/Time Encounter Type Admission Type Attending [facility] Care Facility Care Department Encounter ID Source 2023-01-14 14:02:02 Outpatient [facility] [id number] [facility] 2022-07-02 16:15:01 Outpatient [facility] [id number] [facility] 2021-09-20 14:24:01 Outpatient [facility] [id number] [facility] 2021-08-23 08:44:01 Outpatient [facility] [id number] [facility] 2024-03-12 09:00:00 2024-03-12 09:00:00 Outpatient FACUNDO CHIANGScotty MCNAIR [id number] [facility] 2024-01-30 15:30:00 2024-01-30 15:30:00 Outpatient ROOPA ERNST [id number] [facility] 2024-01-19 09:45:00 2024-01-19 09:45:00 Outpatient BAILEY BARLOW [id number] [facility] 2024-01-02 00:00:00 2024-01-02 00:00:00 Outpatient KAMRON EWING [id number] [facility] 2023-12-01 00:00:00 2023-12-01 00:00:00 Outpatient KAMRON EWING [id number] [facility] 2023-11-26 10:00:00 2023-11-26 10:00:00 Outpatient KAMRON EWING [id number] [facility] 2023-11-20 14:40:00 2023-11-20 14:40:00 Outpatient LUBA MCNAIR [id number] [facility] 2023-11-20 14:00:00 2023-11-20 14:00:00 Outpatient LUBA MCNAIR [id number] [facility] 2023-11-20 13:00:00 2023-11-20 13:00:00 Outpatient LUBA MCNAIR [id number] [facility] 2023-11-10 11:00:00 2023-11-10 11:00:00 Outpatient DIEGO HERNDON LUBA MCNAIR [id number] [facility] 2023-09-23 08:15:00 2023-09-23 08:15:00 Outpatient KIYA LUBA MCNAIR [id number] [facility] 2023-09-22 08:00:00 2023-09-22 08:00:00 Outpatient DWAYNE MOORE LUBA MCNAIR [id number] [facility] 2023-09-18 09:30:00 2023-09-18 09:30:00 Outpatient GILDARDO KAMRON LUBA MCNAIR [id number] [facility] 2023-08-29 00:00:00 2023-08-29 00:00:00 Outpatient JOSE DANYA LUBA MCNAIR [id number] [facility] 2023-08-18 14:00:00 2023-08-18 14:00:00 Outpatient [facility]ON[facility] [id number] [facility] 2023-[facility]-18 11:20:00 2023-08-18 11:20:00 Outpatient LUBA MCNAIR [id number] [facility] 2023-08-18 10:50:00 2023-08-18 10:50:00 Outpatient ANJELICA HOLLAND [id number] [facility] 2023-08-18 10:15:00 2023-08-18 10:15:00 Outpatient ARIANNE LUCIA [id number] [facility] 2023-08-15 00:00:00 2023-08-15 00:00:00 Outpatient ANJELICA HOLLAND [id number] [facility] 2023-08-13 00:00:00 2023-08-13 00:00:00 Outpatient ANJELICA HOLLAND [id number] [facility] 2023-08-05 00:00:00 2023-08-05 00:00:00 Outpatient LIZZ HOLLIDAY [id number] [facility] 2023-07-23 10:00:00 2023-07-23 10:00:00 Outpatient LIZZ HOLLIDAY LUBA MCNAIR [id number] [facility] 2023-07-23 09:55:00 2023-07-23 09:55:00 Outpatient LUBA MCNAIR [id number] [facility] 2023-07-17 00:00:00 2023-07-17 00:00:00 Outpatient LIZZ HOLLIDAY LUBA MCNAIR [id number] [facility] 2023-07-10 14:15:00 2023-07-10 14:15:00 Outpatient SHILOH HERNÁNDEZ LUBA MCNAIR [id number] [facility] 2023-07-09 00:00:00 2023-07-09 00:00:00 Outpatient MARYBETH STONE LUBA MCNAIR [id number] [facility] 2023-07-08 00:00:00 2023-07-08 00:00:00 Outpatient DORA MALDONADO [id number] [facility] 2023-03-25 09:05:00 2023-03-25 09:05:00 Outpatient LUBA MCNAIR [id number] [facility] 2023-03-25 08:50:00 2023-03-25 08:50:00 Outpatient SYLVIE MNCAIR [id number] [facility] 2023-03-25 00:00:00 2023-03-25 00:00:00 Outpatient VAISHALI GARCIA LUBA MCNAIR [id number] [facility] 2023-03-24 15:00:00 2023-03-24 15:00:00 Outpatient JOHANN SHAH [id number] [facility] 2023-03-24 09:45:00 2023-03-24 09:45:00 Outpatient DORA MALDONADO [id number] [facility] 2023-03-21 15:20:00 2023-03-21 15:20:00 Outpatient ROWENA SOTO [id number] [facility] 2023-03-19 13:50:00 2023-03-19 13:50:00 Outpatient ANJELICA HOLLAND [id number] [facility] 2023-03-12 14:40:00 2023-03-12 14:40:00 Outpatient ANJELICA HOLLAND [id number] [facility] 2023-02-20 00:00:00 2023-02-20 00:00:00 Outpatient STONE RUEDA LUBA MCNAIR [id number] [facility] 2023-02-10 16:00:00 2023-02-10 16:00:00 Outpatient LIUDMILA DIOR LUBA MCNAIR [id number] [facility] 2023-02-10 14:30:00 2023-02-10 14:30:00 Outpatient STONE RUEDA LUBA MCNAIR [id number] [facility] 2023-02-10 00:00:00 2023-02-10 00:00:00 Outpatient STONE RUEDA LUBA MCNAIR [id number] [facility] 2023-01-31 14:30:00 2023-01-31 14:30:00 Outpatient GHASSAN MALDONADO [id number] [facility] 2023-01-29 00:00:00 2023-01-29 00:00:00 Outpatient DWAYNE MOORE [id number] [facility] 2022-12-02 15:00:00 2022-12-02 15:00:00 Outpatient GHASSAN MALDONADO [id number] [facility] 2022-10-02 10:10:00 2022-10-02 10:10:00 Outpatient ANJELICA HOLLAND [id number] [facility] 2022-10-02 09:45:00 2022-10-02 09:45:00 Outpatient LUBA MCNAIR [id number] [facility] 2022-09-26 00:00:00 2022-09-26 00:00:00 Outpatient REID MAY [id number] [facility] 2022-09-20 10:20:00 2022-09-20 10:20:00 Outpatient ANJELICA HOLLAND [id number] [facility] 2022-09-19 00:00:00 2022-09-19 00:00:00 Outpatient ANJELICA HOLLAND [id number] [facility] 2022-09-16 13:30:00 2022-09-16 13:30:00 Outpatient ERICA GHASSAN MCNAIR [id number] [facility] 2022-09-10 00:00:00 2022-09-10 00:00:00 Outpatient REID MAY [id number] [facility] 2022-09-09 00:00:00 2022-09-09 00:00:00 Outpatient SIENAANADomenica DANYA MCNAIR [id number] [facility] 2022-09-09 00:00:00 2022-09-09 00:00:00 Outpatient DANYA GARCIA [id number] [facility] 2022-09-04 08:30:00 2022-09-04 08:30:00 Outpatient REID MAY [id number] [facility] 2022-08-26 00:00:00 2022-08-26 00:00:00 Outpatient ANJELICA HOLLAND [id number] [facility] 2022-08-23 09:30:00 2022-08-23 09:30:00 Outpatient ARIANNE LUCIA [id number] [facility] 2022-08-21 07:00:00 2022-08-21 07:00:00 Outpatient LUBA MCNAIR [id number] [facility] 2022-08-21 06:00:00 2022-08-21 06:00:00 Outpatient ANJELICA HOLLAND [id number] [facility] 2022-08-21 00:00:00 2022-08-21 00:00:00 Outpatient ANJELICA HOLLAND [id number] [facility] 2022-08-20 00:00:00 2022-08-20 00:00:00 Outpatient ANJELICA HOLLAND [id number] [facility] 2022-08-19 00:00:00 2022-08-19 00:00:00 Outpatient SKYLERANJELICA [id number] [facility] 2022-08-09 09:05:00 2022-08-09 09:05:00 Outpatient LUBA MCNAIR [id number] [facility] 2022-08-09 00:00:00 2022-08-09 00:00:00 Outpatient EMIR TATA LUBA MCNAIR [id number] [facility] 2022-08-07 00:00:00 2022-08-07 00:00:00 Outpatient SKYLERANJELICA [id number] [facility] 2022-08-02 00:00:00 2022-08-02 00:00:00 Outpatient SALVADOR LUCIAMY LUBA MCNAIR [id number] [facility] 2022-08-01 00:00:00 2022-08-01 00:00:00 Outpatient MD LUBA SILVA [id number] [facility] 2022-07-30 13:15:00 2022-07-30 13:15:00 Outpatient TRED47 LUBA MCNAIR [id number] [facility] 2022-07-30 10:15:00 2022-07-30 10:15:00 Outpatient ARIANNE LUCIA LUBA MCNAIR [id number] [facility] 2022-07-25 11:30:00 2022-07-25 11:30:00 Outpatient LAB47 LUBA MCNAIR [id number] [facility] 2022-07-25 10:45:00 2022-07-25 10:45:00 Outpatient TANBURT ARECHIGA [id number] [facility] 2022-07-25 09:15:00 2022-07-25 09:15:00 Outpatient GHASSAN MALDONADO [id number] [facility] 2022-07-25 00:00:00 2022-07-25 00:00:00 Outpatient LUBA MCNAIR [id number] [facility] 2022-07-25 00:00:00 2022-07-25 00:00:00 Outpatient ANJELICA HOLLAND [id number] [facility] 2022-07-19 00:00:00 2022-07-19 00:00:00 Outpatient LUBA MCNAIR [id number] [facility] 2022-07-19 00:00:00 2022-07-19 00:00:00 Outpatient DWAYNE MOORE [id number] [facility] 2022-07-18 00:00:00 2022-07-18 00:00:00 Outpatient ANJELICA HOLLAND [id number] [facility] 2022-07-12 00:00:00 2022-07-12 00:00:00 Outpatient LUBA MCNAIR [id number] [facility] 2022-07-10 14:30:00 2022-07-10 14:30:00 Outpatient SHARLENE BAUTISTA [id number] [facility] 2022-07-03 00:00:00 2022-07-03 00:00:00 [id number] [facility]22-[facility]-19 14:50:00 2022-06-19 14:50:00 Outpatient ANJELICA HOLLAND [id number] [facility] 2022-06-19 11:00:00 2022-06-19 11:00:00 Outpatient EDUCATION, TOTAL LUBA MCNAIR [id number] [facility] 2022-06-05 09:30:00 2022-06-05 09:30:00 Outpatient LAB59 LUBA MCNAIR [id number] [facility] 2022-06-05 08:45:00 2022-06-05 08:45:00 Outpatient BROOKLYNN GONZALEZ [id number] [facility] 2022-06-03 00:00:00 2022-06-03 00:00:00 Outpatient DWAYNE MOORE [id number] [facility] 2022-05-31 09:30:00 2022-05-31 09:30:00 Outpatient LIUDMILA DIOR [id number] [facility] 2022-05-31 09:00:00 2022-05-31 09:00:00 Outpatient BARBY, KIRIT MCNAIR [id number] [facility] 2022-05-31 08:35:00 2022-05-31 08:35:00 Outpatient LAB90 LUBA MCNAIR [id number] [facility] 2022-05-29 00:00:00 2022-05-29 00:00:00 Outpatient DWAYNE MOORE [id number] [facility] 2022-05-28 08:00:00 2022-05-28 08:00:00 Outpatient DWAYNE MOORE [id number] [facility] 2022-05-16 00:00:00 2022-05-16 00:00:00 Outpatient DOMINGO PEREZ [id number] [facility] 2022-05-15 08:00:00 2022-05-15 08:00:00 Outpatient DWAYNE MOORE [id number] [facility] 2022-05-13 12:00:00 2022-05-13 12:00:00 Outpatient HELGA Samanta Dodge [facility] [id number] [address] [place] [address] 2022-05-02 14:00:00 2022-05-02 14:00:00 Outpatient LUBA MCNAIR [id number] [facility] 2022-04-26 00:00:00 2022-04-26 00:00:00 Outpatient DWAYNE MOORE [id number] [facility] 2022-04-24 00:00:00 2022-04-24 00:00:00 Outpatient LUBA MCNAIR [id number] [facility] 2022-04-19 00:00:00 2022-04-19 00:00:00 Outpatient DOMINGO PEREZ [id number] [facility] 2022-04-19 00:00:00 2022-04-19 00:00:00 Outpatient AISHA DOUGHERTY [id number] [facility] 2022-04-18 15:50:00 2022-04-18 15:50:00 Outpatient LUBA MCNAIR [id number] [facility] 2022-04-18 15:10:00 2022-04-18 15:10:00 Outpatient LUBA MCNAIR [id number] [facility] 2022-04-18 15:00:00 2022-04-18 15:00:00 Outpatient LUBA MCNAIR [id number] [facility] 2022-04-18 00:00:00 2022-04-18 00:00:00 Outpatient BOBBY FLORES LUBA MCNAIR [id number] [facility] 2022-04-18 00:00:00 2022-04-18 00:00:00 Outpatient LADONNA AISHA MCNAIR [id number] [facility] 2022-04-17 00:00:00 2022-04-17 00:00:00 Outpatient AISHA DOUGHERTY [id number] [facility] 2022-04-11 00:00:00 2022-04-11 00:00:00 Outpatient METOXEN, DOMINGO MCNAIR [id number] [facility] 2022-04-10 00:00:00 2022-04-10 00:00:00 Outpatient AISHA DOUGHERTY [id number] [facility] 2022-04-03 08:20:00 2022-04-03 08:20:00 Outpatient AISHA DOUGHERTY [id number] [facility] 2022-04-03 00:00:00 2022-04-03 00:00:00 Outpatient LUBA MCNAIR [id number] [facility] 2022-04-02 15:30:00 2022-04-02 15:30:00 Outpatient METOXEN, DOMINGO MCNAIR [id number] [facility] 2022-03-19 00:00:00 2022-03-19 00:00:00 Outpatient METOXEN, DOMINGO MCNAIR [id number] [facility] 2022-03-15 16:45:00 2022-03-15 16:45:00 Outpatient LUBA MCNAIR [id number] [facility] 2022-02-20 11:00:00 2022-02-20 11:00:00 Outpatient METOXEN, DOMINGO MCNAIR [id number] [facility] 2022-02-20 00:00:00 2022-02-20 00:00:00 Outpatient LUBA MCNAIR [id number] [facility] 2022-02-19 00:00:00 2022-02-19 00:00:00 Outpatient METOXEN, DOMINGO LUBA MCNAIR [id number] [facility] 2022-02-18 00:00:00 2022-02-18 00:00:00 Outpatient METOXEN, DOMINGO MCNAIR [id number] [facility] 2021-12-26 15:20:00 2021-12-26 15:20:00 Outpatient METOXEN, DOMINGO MCNAIR [id number] [facility] 2021-12-26 15:05:00 2021-12-26 15:05:00 Outpatient LUBA MCNAIR [id number] [facility] 2021-12-24 00:00:00 2021-12-24 00:00:00 Outpatient METOXEN, DOM[facility] [id number] [facility] 2021-12-20 15:10:00 2021-12-20 15:10:00 Outpatient JEANNE, SMOOTH MCNAIR [id number] [facility] 2021-12-17 13:40:00 2021-12-17 13:40:00 Outpatient JEANNE, SMOOTH MCNAIR [id number] [facility] 2021-12-17 00:00:00 2021-12-17 00:00:00 Outpatient METOXEN, DOMINGO MCNAIR [id number] [facility] 2021-11-29 13:00:00 2021-11-29 13:00:00 Outpatient LUBA MCNAIR [id number] [facility] 2021-11-29 00:00:00 2021-11-29 00:00:00 Outpatient METOXEN, DOMINGO MCNAIR [id number] [facility] 2021-11-28 08:35:00 2021-11-28 08:35:00 Outpatient LUBA MCNAIR [id number] [facility] 2021-11-28 08:30:00 2021-11-28 08:30:00 Outpatient METOXEN, DOMINGO MCNAIR [id number] [facility] 2021-11-03 12:00:00 2021-11-03 12:00:00 Outpatient Samanta De Paz [id number] 04 [facility] 2021-08-06 00:00:00 2021-08-06 00:00:00 Outpatient DWAYNE MOORE [id number] [facility] 2021-08-03 09:00:00 2021-08-03 09:00:00 Outpatient LAB90 LUBA MCNAIR [id number] [facility] 2021-08-03 08:15:00 2021-08-03 08:45:00 [facility] [place] 1..840.114 350.1.13.13 [id number] [id number] [facility] 2021-06-05 00:00:00 2021-06-05 00:00:00 Orders Only Doctor Unassigned, [place] [facility] 1..840.114 350.1.13.10 4.2.7.2.686 [id number] [facility] 2021-05-12 00:00:00 2021-05-12 00:00:00 Outpatient DWAYNE MOORE [id number] [facility] 2021-04-25 16:15:00 2021-04-25 17:02:32 Outpatient BEVERLY DAIGLE [facility] [id number] [facility] 2021-04-25 16:15:00 2021-04-25 17:02:32 Office Visit Beverly Bobo [facility] 1..840.114 350.1.13.10 4.2.7.2.686 [id number] [facility] 2021-04-16 16:00:00 2021-04-16 16:00:00 Outpatient BEVERLY DAIGLE [facility] [id number] [facility] 2021-03-26 14:30:00 2021-03-26 14:39:27 Telemedici ne Dwayne Moore 1..840.114 350.1.13.13 [id number] [id number] [facility] 2021-03-26 00:00:00 2021-03-26 00:00:00 Outpatient DWAYNE MOORE LUBA MCNAIR [id number] [facility] 2021-03-26 00:00:00 2021-03-26 00:00:00 Outpatient DWAYNE MOORE LUBA MCNAIR [id number] [facility] 2021-03-26 00:00:00 2021-03-26 00:00:00 Orders Only Doctor Unassigned, [place] [facility] 1..840.114 350.1.13.10 4.2.7.2.686 [id number] [facility] 2021-03-20 00:00:00 2021-03-20 00:00:00 Outpatient DWAYNE MOORE LUBA MCNAIR [id number] [facility] 2021-03-20 00:00:00 2021-03-20 00:00:00 Outpatient DWAYNE MOORE LUBA MCNAIR [id number] [facility] 2021-03-09 00:00:00 2021-03-09 00:00:00 Telephone Beverly Bobo [facility] MEDICAL OFFICE BUILDING 1..840.114 350.1.13.10 4.2.7.2.686 [id number] [facility] 2021-03-07 15:00:00 2021-03-07 15:23:29 Outpatient R BEVERLY BOBO [facility] [id number] [facility] 2021-03-07 15:00:00 2021-03-07 15:23:29 Office Visit Beverly Bobo [facility] MEDICAL OFFICE BUILDING 1.2.840.114 350.1.13.10 4.2.7.2.686 [id number] [facility] 2021-03-07 00:00:00 2021-03-07 00:00:00 Orders Only Doctor Unassigned, [place] [facility] 1.2840.114 350.1.13.10 4.2.7.2.686 [id number] [facility] 2021-03-06 00:00:00 2021-03-06 00:00:00 Outpatient LUBA MCNAIR [id number] [facility] 2021-02-28 00:00:00 2021-02-28 00:00:00 Patient Secure Msg Doctor Unassigned, [place] [facility] 1.2840.114 350.1.13.10 4.2.7.2.686 [id number] [facility] 2021-02-05 00:00:00 2021-02-05 00:00:00 Outpatient DWAYNE MOORE [id number] [facility] 2020-12-13 00:00:00 2020-12-13 00:00:00 Outpatient DWAYNE MOORE [id number] [facility] 2020-10-14 12:00:00 2020-10-14 12:00:00 Outpatient Samanta De Paz [facility] [id number] [facility] 2020-10-09 08:00:00 2020-10-09 08:00:00 Outpatient LIUDMILA DIOR [id number] [facility] 2020-10-03 00:00:00 2020-10-03 00:00:00 Outpatient DWAYNE MOORE [id number] [facility] 2020-09-29 00:00:00 2020-09-29 00:00:00 Patient Secure Msg Doctor Unassigned, [place] [facility] 1.2840.114 350.1.13.10 4.2.7.2.686 [id number] [facility] 2020-09-28 09:52:18 2020-09-28 10:27:04 Office Visit Beverly Bobo [facility] 1..840.114 350.1.13.10 4.2.7.2.686 [id number] [facility] 2020-09-28 09:15:00 2020-09-28 10:27:04 Outpatient R BEVERLY BOBO [facility] [id number] [facility] 2020-09-22 00:00:00 2020-09-22 00:00:00 Outpatient DWAYNE MOORE [id number] [facility] 2020-09-21 14:30:00 2020-09-21 14:30:00 Outpatient DWAYNE MOORE [id number] [facility] 2020-09-19 00:00:00 2020-09-19 00:00:00 Outpatient DWAYNE MOORE [id number] [facility] 2020-08-31 00:00:00 2020-08-31 00:00:00 Outpatient DWAYNE MOORE [id number] [facility] 2020-08-09 00:00:00 2020-08-09 00:00:00 Orders Only Doctor Unassigned, [place] [facility] 1.840.114 350.1.13.10 4.2.7.2.686 [id number] [facility] 2020-06-15 08:00:00 2020-06-15 08:00:00 Outpatient R BEVERLY BOBO [facility] [id number] [facility] 2020-06-09 00:00:00 2020-06-09 00:00:00 Telephone Beverly Bobo [facility] alan Lester 1..840.114 350.1.13.10 4.2.7.2.686 [id number] [facility] 2020-06-08 08:15:00 2020-06-08 08:15:00 Outpatient R BEVERLY BOBO [facility] [id number] [facility] 2020-06-08 00:00:00 2020-06-08 00:00:00 Patient Secure Msg Doctor Unassigned, [place] [facility] 1.0.114 350.1.13.10 4.2.7.2.686 [id number] [facility] 2020-05-16 00:00:00 2020-05-16 00:00:00 Patient Outreach Niranjan Gutiérrez [facility] 1..114 350.1.13.10 4.2.7.2.686 [id number] [facility] 2020-03-14 13:02:02 2020-03-14 13:22:02 Laboratory Only Lab, [facility] 1.84.114 350.1.13.10 4.2.7.2.686 [id number] [facility] 2020-03-14 13:00:00 2020-03-14 13:00:00 Outpatient MARCY BOSCHTHIA [facility] [id number] [facility] 2020-03-14 00:00:00 2020-03-14 00:00:00 Letter (Out) Doctor Unassigned, [place] [facility] 1.284.114 350.1.13.10 4.2.7.2.686 [id number] [facility] 2019-09-09 14:09:03 2019-09-09 23:59:00 Outpatient LUISITO MORALES [facility] [id number] [facility] 2019-09-09 12:48:00 2019-09-09 23:59:00 Hospital Encounter Aglieco, Luisito [facility] 1.2.840.114 350.1.13.10 4.2.7.2.686 [id number] [facility] 2019-09-09 00:00:00 2019-09-09 00:00:00 Outpatient LUISITO MORALES [facility] [id number] [facility] 2019-05-03 12:00:00 2019-05-03 12:00:00 Outpatient Samanta De Paz [facility] [id number] 04 [facility] 2019-04-12 13:39:23 2019-04-12 23:59:00 Outpatient JERAMIEDANAIG [facility] [id number] [facility] 2019-04-12 13:39:00 2019-04-12 23:59:00 Hospital Encounter [facility] [id number] 350.1.13.10 4.2.7.2.686 [id number] [facility] 2019-04-12 13:28:10 2019-04-12 14:45:38 Office Visit [facility] 1.2.840.114 350.1.13.10 4.2.7.2.686 [id number] 2019-04-12 13:28:10 2019-04-12 14:45:38 Office Visit [facility] Bob[facility] [id number] 350.1.13.10 4.2.7.2.686 [id number] [facility] 2019-03-29 13:45:00 2019-03-29 13:45:00 Outpatient Rosibel BEVERLY BOBO [facility] [id number] [facility] Notes Date/Time Note Provider Source 2023-09-22 08:12:44 Chief Complaint Patient presents with Physical Patient is fasting. Yamila Macias MA II T [facility] 2023-09-18 09:33:48 Chief Complaint Patient presents with Well Woman Exam Yaneth Guerrero CMA II T [facility] 2023-08-18 12:12:51 Follow-up (1 year follow-up, S/P total hip replacement with Dr. Holland) Candie Armijo RN Candie Armijo RN [facility] 2023-07-23 10:07:27 Chief Complaint Patient presents with Hand Problem RHD patient c/o left middle finger growth. Pain level 3/10 numbness and tingling ARNIE Armenta T [facility] 2022-10-02 10:09:56 Formatting of this n ote is different from the original. Chief Complaint Patient presents with Surgical Follow-up Post op right edvin dos 08/21/22. Nanda Márquez Nanda GAITAN II [facility] 2022-09-16 13:06:31 Formatting of this n ote might be different from the original. Luma Villanueva [facility]
[2024-01-22] MEDS ORDERED: IBUPROFEN 200 MG TAB PO ONE (00:15)
[2024-01-22] MEDS ORDERED: IBUPROFEN 400 MG TAB ONE (00:15)
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
[2024-01-22 05:05] VITALS: TEMP 98
[2024-01-22 05:08] VITALS: BP 161/76; O2SAT 97
== END 2024-01-22 04:02 | disposition home or self-care (01) ==
LOC: ER 23:46
DX: S20.211A Contusion of right front wall of thorax, initial encounter (principal); V50.6XXA Passenger in pick-up truck or van injured in collision with pedestrian or animal in traffic accident, initial encounter; I10 Essential (primary) hypertension
CPT/HCPCS: 70450; 71046; 72125; 99283